=== PATIENT | male | born 1990 | race African-American/Black ===

== ENCOUNTER 2021-12-24 11:00 | Emergency (ER) | payer BC, SELFPAY ==
[2021-12-24 11:03] VITALS: BP 124/72; PULSE 80; RESP 16; TEMP 36.9; O2SAT 100
--- NOTE | 2021-12-24 11:44 | ED.SKABFB ---
HPI - Skin/Abscess/Foreign Bdy General Chief complaint: Skin/Abscess/Foreign Body Stated complaint: rash Time Seen by Provider: 12/24/21 11:12 Source: patient Mode of arrival: ambulatory Limitations: no limitations History of Present Illness HPI narrative: This is a 31-year-old male that presents to the emergency department for a rash present over the last 3 weeks. Reports an itchy rash to the left lower abdomen. He tried to use an [id number] steroid cream with little relief. Denies fever, or pain. Related Data Allergies Allergy/AdvReac Type Severity Reaction Status Date / Time No Known Allergies Allergy Verified 10/17/19 07:32 Review of Systems Review of Systems: CONSTITUTIONAL: Denies fever SKIN: Reports rash and itching. All systems reviewed & are unremarkable except as noted in HPI and below PMFSH Past Medical History Medical History (Updated 12/24/21 @ 11:48 by Migdalia Rivera PA-C) No pertinent past medical history Surgical History Surgical History (Updated 10/17/19 @ 06:57 by Ben Caraballo MD) No pertinent past surgical history Social History Social History (Updated 10/17/19 @ 06:57 by Ben Caraballo MD) Smoking status: Never smoker Alcohol intake: never Substance use: never Gender identity (if verbalized by the patient): Male Exam Narrative: GENERAL: Well-appearing, well-nourished, and in no acute distress. HEAD: Normocephalic, atraumatic. EYES: EOMI. EXTREMITIES: Normal range of motion. No edema. SKIN: Warm, dry. Red, fine papular rash present to the left lower abdomen NEURO: No focal deficits. Alert and oriented x3. PSYCH: Normal mood and affect Course Vital Signs Vital signs: Vital Signs Temperature 98.4 F 12/24/21 11:03 Pulse Rate 80 12/24/21 11:03 Respiratory Rate 16 12/24/21 11:03 Blood Pressure 124/72 12/24/21 11:03 Pulse Oximetry 100 12/24/21 11:03 Temperature 98.4 F 12/24/21 11:03 Pulse Rate 80 12/24/21 11:03 Respiratory Rate 16 12/24/21 11:03 Blood Pressure 124/72 12/24/21 11:03 Pulse Oximetry 100 12/24/21 11:03 MDM - Skin/Abscess/Foreign Bdy MDM Narrative Medical decision making narrative: Patient presents to the emergency department for an itchy rash noted over the last couple of weeks. He is afebrile and nontoxic-appearing. No signs of infection on exam. The rash is not painful and there are not any vesicles, so I do not feel is concerning for Zoster. Consistent with likely contact dermatitis versus eczema. Will be started on a steroid cream. Was instructed to follow-up with his primary doctor. Advised he may need to see a trailhead maintenance worker as well if rash persists. He was given warnings to return to the ER Critical Care Time Critical Care Time Critical Care Time: No Discharge Plan Discharge Clinical Impression: Rash and nonspecific skin eruption Patient Disposition: Home, Self-Care Condition: Stable Instructions: Acute Rash (ED) Additional Instructions: Return to the emergency department if you experience fever, redness and swelling of your wounds, abnormal drainage from your wounds, or any other symptoms that are concerning to you Use sensitive skin soap/lotion without any fragrances. Take a Pepcid and Claritin daily. Apply steroid ointment as prescribed. Benadryl as needed for severe itching Follow-up with your primary care doctor If your rash persists you may need to follow-up with a trailhead maintenance worker as well Prescriptions: New triamcinolone acetonide 0.025 % ointment 1 applic topical BID 7 Days Qty: 15 RF: 0 No Action tamsulosin 0.4 mg capsule 0.4 mg PO DAILY Qty: 5 RF: 0 ondansetron 4 mg tablet,disintegrating 4 mg PO Q6H PRN (Reason: nausea and vomiting) Qty: 10 RF: 0 hydrocodone-acetaminophen 5-325 mg tablet 1 tablet PO Q6H PRN (Reason: pain) Qty: 10 RF: 0 Follow-up/Referrals: Marco,Paulette Edouard MD [Primary Care Provider] - 3 Days
== END 2021-12-24 12:01 | disposition home or self-care (01) ==
PROVIDERS: Emergency Provider Family Medicine; PCP Family Medicine
DX: R21 Rash and other nonspecific skin eruption (principal)
CPT/HCPCS: 99283

== ENCOUNTER → 2023-03-03 17:21 | Emergency (ER) | payer BC, SELFPAY ==
[2023-03-03 17:52] VITALS: BP 117/73; PULSE 68; RESP 18; TEMP 36.7; O2SAT 100
[2023-03-03 18:17] LABS: Appearance Urine Clear (Clear); Bacteria Urine None Seen /hpf; Bilirubin Urine Negative (Negative); Blood Urine Negative (Negative); Color Urine Yellow (Yellow); Glucose Urine UA Negative (Negative); Ketones Urine Negative (Negative); Leukocyte Esterase Ur Negative LEU/UL (Negative); Nitrate Urine Negative (Negative); Non Pathogenic Casts 0-2; Protein Urine Trace mg/dL (Negative); Specific Grav Ur 1.029 (1.001-1.035); Squamous Epithelial Cell Urine None seen /hpf (Few); WBC Urine 0-5 /hpf; pH Urine 6.5 (5.0-9.0)
[2023-03-03 19:07] LABS: Add Urine Microscopic? YES
--- NOTE | 2023-03-03 20:00 | PC.NURSE ---
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 Pt ambulated out of ED with steady gait, in no obvious distress.
== END | disposition left against medical advice (07) ==
PROVIDERS: Family Medicine; Emergency Provider Physician Assistant; PCP Family Medicine
DX: R30.0 Dysuria (principal)
CPT/HCPCS: 81001; 87491; 87591; 87661; 99199; L0140

== ENCOUNTER 2023-03-04 09:17 | Emergency (ER) | payer BC, SELFPAY ==
[2023-03-04 09:22] VITALS: BP 122/74; PULSE 65; RESP 16; TEMP 36.7; O2SAT 100
--- NOTE | 2023-03-04 10:14 | PC.NURSE ---
Covid/Flu swab sent to lab
[2023-03-04 10:57] LABS: Influenza A QL RT-PCR Negative (Negative); Influenza B QL RT-PCR Negative (Negative); SARS-CoV-2 RNA PCR Negative
--- NOTE | 2023-03-04 11:16 | ED.GENADULT ---
HPI - General Adult General Chief complaint: Unspecified Stated complaint: UTI, sinus infection, ear pain Time Seen by Provider: 03/04/23 09:34 Source: patient and RN notes reviewed History of Present Illness HPI narrative: Patient presents emergency department from home for multiple complaints. Patient states he has been having dysuria for the past 2 days. States has been noticing some burning with urination as well as having a clear penile discharge. He also notes some generalized penile itching. States he has had no abdominal pain with this he denies any fevers or chills he denies any testicular pain states no known history of UTI. Patient also states that he has been having a runny nose and right ear pressure for the past day he denies any fevers or chills he denies any left ear pain sore throat cough shortness of breath or any other symptoms. States he has not take anything for the symptoms Related Data Allergies Allergy/AdvReac Type Severity Reaction Status Date / Time No Known Allergies Allergy Verified 03/04/23 09:25 Review of Systems Review of Systems: Gen.: Denies fevers or chills Eyes: Denies eye pain or visual change ENT: See HPI Respiratory: Denies shortness of breath or cough CV: Denies chest pain or palpitations GI: Denies abdominal pain nausea, emesis or diarrhea see HPI Musculoskeletal: Denies back pain or muscle pain Neuro: Denies numbness, tingling, weakness or focal weakness Skin: Denies rash Except as documented, all other systems reviewed and negative PMFSH Past Medical History Medical History No pertinent past medical history Surgical History Surgical History (Updated 10/17/19 @ 06:57 by Ben Caraballo MD) No pertinent past surgical history Social History Social History Smoking status: Never smoker Alcohol intake: never Substance use: never Gender identity (if verbalized by the patient): Male Exam Narrative: APPEARANCE: No acute distress, nontoxic, resting in bed EYES: EOMI HEENT: Normocephalic, atraumatic, TMs clear bilaterally, bilateral turbinates boggy, no erythema or exudate posterior pharynx RESPIRATORY: No respiratory distress Clear to auscultation bilaterally with no rhonchi wheezing or rales. CARDIOVASCULAR: Regular rate and rhythm without murmurs rubs or gallops. ABDOMINAL: Soft, nontender, nondistended, no rebound or guarding : Circumcised male with no skin lesions noted no scrotal swelling or erythema no testicular tenderness small amount of clear discharge MUSCULOSKELETAl: Moves all extremities. No clubbing, cyanosis or edema. NEURO: Awake and alert. Following commands, speech normal, no focal deficits SKIN:: Warm, dry. No rashes lesions or abrasions PSYCHIATRIC: Normal affect/mood, Course Course Emergency Course: The patient was seen in the emergency department yesterday and had to leave before being seen and a UA was sent at that time reviewed UA from yesterday showing no acute process Discussed with patient concern of possible STD and will treat at this time Discussed with patient results of workup and diagnosis. Discussed need for follow-up with primary care, proper use of medication, and reasons to return to the emergency department. Patient understands and agrees to current treatment plan Vital Signs Vital signs: Vital Signs Temperature 98.1 F 03/04/23 09:22 Pulse Rate 65 03/04/23 09:22 Respiratory Rate 16 03/04/23 09:22 Blood Pressure 122/74 03/04/23 09:22 Pulse Oximetry 100 03/04/23 09:22 Oxygen Delivery Room Air 03/04/23 09:22 Temperature 98.1 F 03/04/23 09:22 Pulse Rate 65 03/04/23 09:22 Respiratory Rate 16 03/04/23 09:22 Blood Pressure 122/74 03/04/23 09:22 Pulse Oximetry 100 03/04/23 09:22 Oxygen Delivery Room Air 03/04/23 09:22 Medical Decision Making MDM Narrative Medical decis
[2023-03-04] MEDS: DOXYCYCLINE HYCLATE 100 MG TABLET PO (11:25)
[2023-03-04] MEDS: cefTRIAXone 1 GM VIAL 0.5 GM IM (11:25)
[2023-03-04] MEDS: LIDOCAINE HCL 1% PF 30 ML VIAL XX (11:26)
[2023-03-04 11:35] VITALS: BP 127/79; PULSE 80; RESP 14; O2SAT 100
== END 2023-03-04 11:36 | disposition home or self-care (01) ==
PROVIDERS: Emergency Provider Emergency Medicine; PCP Family Medicine
DX: N34.2 Other urethritis (principal); J30.9 Allergic rhinitis, unspecified; Z20.822 Contact with and (suspected) exposure to COVID-19
CPT/HCPCS: 87636; 96372; 99283; A9270; J0696

== ENCOUNTER 2023-07-15 10:03 | Emergency (ER) | payer BC, SELFPAY ==
[2023-07-15 10:22] VITALS: BP 120/71; PULSE 73; RESP 18; TEMP 36.3; O2SAT 100
[2023-07-15 13:44] LABS: Appearance Urine Clear (Clear); Bilirubin Urine Negative (Negative); Blood Urine Negative (Negative); Color Urine Yellow (Yellow); Glucose Urine UA Negative (Negative); Ketones Urine Negative (Negative); Leukocyte Esterase Ur Negative LEU/UL (Negative); Nitrate Urine Negative (Negative); Protein Urine Negative (Negative); Specific Grav Ur 1.025 (1.001-1.035)
[2023-07-15 13:50] LABS: Add Urine Microscopic? NO
--- NOTE | 2023-07-15 13:59 | ED.GENADULT ---
HPI - General Adult General Chief complaint: Urogenital-Male Stated complaint: lump to groin Time Seen by Provider: 07/15/23 13:11 History of Present Illness HPI narrative: 33-year-old male presented the emergency department for evaluation of a resolving abscess on his left groin. Patient reports approximately 1 week ago he started noticing some swelling in his left groin. Patient states about 3 to 4 days ago it did pop spontaneously and has since been improving but patient was concerned because he still does have a lump in his left groin. Patient denies any testicular pain or swelling but does have some testicular soreness every once in a while. Patient denies any discharge from his penis or pain with urination. Related Data Allergies Allergy/AdvReac Type Severity Reaction Status Date / Time No Known Allergies Allergy Verified 07/15/23 10:25 Review of Systems Review of Systems: All systems reviewed & are unremarkable except as noted in HPI and below PMFSH Past Medical History Medical History No pertinent past medical history Surgical History Surgical History (Updated 10/17/19 @ 06:57 by Ben Caraballo MD) No pertinent past surgical history Social History Social History Smoking status: Never smoker Alcohol intake: never Substance use: never Gender identity (if verbalized by the patient): Male Exam Narrative: APPEARANCE: Well appearing, no pain, no distress, well-nourished. HEAD: normocephalic, atraumatic. EYES: PERRLA/EOMI, conjunctivae clear. NOSE: Normal no drainage EARS:TMS clear with good light reflex. THROAT: Pharynx clear, no exudate. NECK: Supple. No adenopathy, no masses. RESPIRATORY: Airway patent, respirations nonlabored. Clear to auscultation bilaterally, no rales, rhonchi, wheezing. CARDIOVASCULAR: Regular rate and rhythm without murmurs rubs or gallops. ABDOMINAL: Soft, nontender, nondistended, normal bowel sounds Genital: Normal genital exam MUSCULOSKELETAL: Moves all extremities. Strength/ROM intact, No edema, No calf tenderness. NEURO: Alert. Cranial nerves II through XII intact. Good gait. Good coordination SKIN: Palpable lymph node at the left groin Course Course Emergency Course: 32-year-old male presented ED for evaluation of right groin pain that is potentially resolving abscess or lymph node. Patient does describe a previous abscess that ruptured spontaneously. Patient will be started on antibiotics and was encouraged of close follow-up with his primary care physician. Vital Signs Vital signs: Vital Signs Temperature 97.4 F L 07/15/23 10:22 Pulse Rate 73 07/15/23 10:22 Respiratory Rate 18 07/15/23 10:22 Blood Pressure 120/71 07/15/23 10:22 Pulse Oximetry 100 07/15/23 10:22 Oxygen Delivery Room Air 07/15/23 10:22 Temperature 98.3 F 07/15/23 14:12 Pulse Rate 78 07/15/23 14:12 Respiratory Rate 18 07/15/23 14:12 Blood Pressure 120/75 07/15/23 14:12 Pulse Oximetry 99 07/15/23 14:12 Oxygen Delivery Room Air 07/15/23 10:22 Medical Decision Making Differential Diagnosis Differential Diagnosis: Lymphadenopathy, resolving abscess, boil Vital Signs Vital Signs: Vital Signs Temperature 97.4 F L 07/15/23 10:22 Pulse Rate 73 07/15/23 10:22 Respiratory Rate 18 07/15/23 10:22 Blood Pressure 120/71 07/15/23 10:22 Pulse Oximetry 100 07/15/23 10:22 Oxygen Delivery Room Air 07/15/23 10:22 Temperature 98.3 F 07/15/23 14:12 Pulse Rate 78 07/15/23 14:12 Respiratory Rate 18 07/15/23 14:12 Blood Pressure 120/75 07/15/23 14:12 Pulse Oximetry 99 07/15/23 14:12 Oxygen Delivery Room Air 07/15/23 10:22 Lab Data Labs: Lab Results 07/15/23 Range/Units 13:28 Urine Color Yellow (Yellow) Urine Appearance Clear (Clear) Urine pH 7.0 (5.0-9.0) Ur Specific
[2023-07-15] MEDS: CLINDAMYCIN HCL 150 MG CAP PO (14:06)
[2023-07-15 14:12] VITALS: BP 120/75; PULSE 78; RESP 18; TEMP 36.8; O2SAT 99
== END 2023-07-15 14:14 | disposition home or self-care (01) ==
PROVIDERS: Emergency Provider Emergency Medicine
DX: L02.214 Cutaneous abscess of groin (principal); R59.1 Generalized enlarged lymph nodes
CPT/HCPCS: 81003; 99283; A9270

== ENCOUNTER 2024-02-26 22:18 | Emergency (ER) | payer BC, SELFPAY ==
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
[2024-02-26 22:22] VITALS: BP 97/67; PULSE 74; RESP 20; TEMP 36.3; O2SAT 100
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
[2024-02-27] MEDS: ACETAMINOPHEN 500 MG TABLET 1000 MG PO (00:09)
[2024-02-27] MEDS: KETOROLAC 30 MG/ML VIAL (*BKC) IM (00:09)
[2024-02-27 03:17] VITALS: BP 96/62; PULSE 70; RESP 14; O2SAT 99
== END 2024-02-27 03:20 | disposition home or self-care (01) ==
PROVIDERS: Emergency Provider Physician Assistant
DX: S16.1XXA Strain of muscle, fascia and tendon at neck level, initial encounter (principal); V49.40XA Driver injured in collision with unspecified motor vehicles in traffic accident, initial encounter
CPT/HCPCS: 72125; 72131; 96372; 99284; A9270; J1885